=== PATIENT | female | born 1955 | race Caucasian/White ===

== ENCOUNTER 2017-04-15 05:44 | Emergency (ER) | payer BC ==
--- NOTE | 2017-04-15 05:51 | PDOC ---
History of Present Illness - General Chief Complaint: Pain, Acute Stated Complaint: NECK PAIN - History of Present Illness Initial Comments: This 61-year-old woman with no significant past medical history presents with a few day history of persistent neck/upper back pain with muscle spasms. Patient states that she was performing resistance exercises of the upper body, including overhead lifts 3 days ago. The following day, she noted onset of pain and stiffness in her neck and upper back. Other than a brief, self resolving episode of feeling bilateral hand "tightness", she has not had paresthesias/numbness/weakness of upper or lower extremities. She has not had any other trauma or overuse recently. No recent fever/chills Patient has been taking [id number] naproxen (Aleve) for the pain. Last dose of Aleve was at 9 PM last night Patient has a history of neck pain and possible cervical disc issues. She is followed by neurologist, Dr. Nancy Reese for this. She has needed physical therapy in the past for her neck pain. Past History - Past Medical History Allergies/Adverse Reactions: Allergies Allergy/AdvReac Type Severity Reaction Status Date / Time No Known Allergies Allergy Unverified 04/15/17 05:49 Home Medications: Ambulatory Orders Naproxen Sodium [Aleve] 220 mg PO ONCE 04/15/17 Naproxen Sodium [Anaprox Ds] 550 mg PO BID PRN #20 tablet 04/15/17 Tizanidine HCl [Zanaflex (Nf) -] 4 mg PO BID PRN #10 tablet 04/15/17 Hypercholesterolemia: Yes - Suicide/Smoking/Psychosocial Hx Smoking Status: No Smoking History: Never smoked Number of Cigarettes Smoked Daily: 0 Review of Systems - Review of Systems Able to Perform ROS?: Yes Comments:: 12 point review of systems is negative except for what is noted in the history of present illness *Physical Exam - Physical Exam Comments: GENERAL: Adult female, holding neck straight but alert and oriented in no acute distress HEAD: Normal with no signs of trauma. EYES: PERRLA, EOMI, sclera anicteric, conjunctiva clear. ENT: Ears normal, nares patent, oropharynx clear without exudates. Moist mucous membranes. NECK: Flexion somewhat limited by pain but no meningismus present. No masses/ bruits or stridor No midline cervical vertebral tenderness; palpable spasm and tenderness of bilateral paraspinal cervical muscles Palpable spasm and tenderness of bilateral trapezius muscles LUNGS: Breath sounds equal, clear to auscultation bilaterally. No wheezes, and no crackles. HEART:Regular rate and rhythm, normal S1 and S2 without murmur, rub or gallop. EXTREMITIES: Normal range of motion, no edema. No clubbing or cyanosis. No erythema, or tenderness. NEUROLOGICAL: Cranial nerves II through XII grossly intact. Normal speech. No focal neurological deficits. Motor 5/5 of upper and lower extremities Medical Decision Making - Medical Decision Making This 61-year-old woman with a history of previous episodes of neck pain presents with upper back/paraspinal muscle spasms after resistance exercises of her upper body. No other associated symptoms of patient has had no extremity weakness/numbness/paresthesias. Exam as noted. Clinical presentation consistent with overuse of upper body and paraspinal neck muscles resulting in spasm. Patient was offered IM Toradol but preferred oral nonsteroidal anti- inflammatory. Naproxen has been most useful ineffective nonsteroidal anti- inflammatory for her so she was given 500 mg along with Flexeril 10 mg by mouth. Soft collar was applied and patient had some relief with this. Prescriptions for Anaprox DS twice a day as needed with food as well as tizanidine 4 mg up to 3 times a day for muscle spasms were sent to her pharmacy. The patient will follow-up with within the next 3-4 days ; she may need physical therapy in the near future. She should return to the emergency room if she has severe, persistent pain or experiences weakness/ numbness/paresthesias of her extremities. *DC/Admit/Observation/Transfer Diagnosis at time of Disposition: Muscle spasms of neck - Discharge Dispostion Disposition: HOME Condition at time of disposition: Stable - Prescriptions Prescriptions: Naproxen Sodium [Anaprox Ds] 550 mg PO BID PRN #20 tablet PRN Reason: Pain Tizanidine HCl [Zanaflex (Nf) -] 4 mg PO BID PRN #10 tablet PRN Reason: Muscle Spasms - Referrals Referrals: Thaddeus Villa [Primary Care Provider] - Nancy Reese MD [Non Staff, Medical] - - Patient Instructions Printed Discharge Instructions: DI for Neck Pain Additional Instructions: Local warmth to muscles that are painful Soft collar as needed Naproxen 550 mg twice a day as needed-take with food Tizanidine 4 mg up to twice a day as needed for muscle spasms-this medication will make you sleepy Call Dr. Reese's office on April 17 to arrange follow-up within 48 hours Physical therapy as per Return to ER if you have severe pain or experience pain/weakness/numbness of arms or legs - Post Discharge Activity
[2017-04-15 05:52] VITALS: BP 138/70; PULSE 80; TEMP 98.4; BMI 26.5
[2017-04-15] MEDS ORDERED: NAPROXEN 500 MG TABLET (FP) PO ONE (06:05)
[2017-04-15] MEDS ORDERED: CYCLOBENZAPRINE HCL 10 MG TABLET (FP) PO ONE (06:06)
[2017-04-15] MEDS ORDERED: NAPROXEN 500 MG TABLET (FP) ONE (06:13)
[2017-04-15] MEDS ORDERED: CYCLOBENZAPRINE HCL 10 MG TABLET (FP) ONE (06:14)
== END 2017-04-15 06:19 | disposition home or self-care (01) ==
LOC: FER 05:44
DX: M62.838 Other muscle spasm (principal)
CPT/HCPCS: 99282-25

== ENCOUNTER 2023-06-14 23:37 | Emergency (ER) | payer OTHER, BC ==
[2023-06-15] MEDS ORDERED: IBUPROFEN 600 MG TABLET (FP) PO ONE (00:09)
[2023-06-15] MEDS: IBUPROFEN 600 MG TABLET (FP) PO ONE (00:24)
[2023-06-15 00:34] VITALS: BP 153/102; PULSE 118; RESP 17; TEMP 98.6; BMI 27.1
== END 2023-06-15 00:42 | disposition home or self-care (01) ==
LOC: FER 23:37
DX: H92.02 Otalgia, left ear (principal); H72.92 Unspecified perforation of tympanic membrane, left ear; H66.92 Otitis media, unspecified, left ear
CPT/HCPCS: 99283-25

== ENCOUNTER 2024-05-04 23:32 | Emergency (ER) | payer OTHER, BC ==
[2024-05-04 23:37] VITALS: BP 135/71; PULSE 85; RESP 17; TEMP 98.2; BMI 25.8
[2024-05-05] MEDS: IBUPROFEN 400 MG TABLET (FP) PO ONE (01:39)
[2024-05-05] MEDS ORDERED: IBUPROFEN 400 MG TABLET (FP) PO ONE (01:41)
[2024-05-05] MEDS ORDERED: IBUPROFEN 600 MG TABLET (FP) PO ONE (01:41)
== END 2024-05-05 02:08 | disposition home or self-care (01) ==
LOC: FER 23:32
DX: S20.212A Contusion of left front wall of thorax, initial encounter (principal); M54.50 Low back pain, unspecified; G89.29 Other chronic pain; W01.198A Fall on same level from slipping, tripping and stumbling with subsequent striking against other object, initial encounter
CPT/HCPCS: 71101-TC-LT-FY; 99283-25